=== PATIENT | female | born 1950 | race Caucasian/White ===

== ENCOUNTER → 2017-02-06 | Outpatient (CLI) | payer MEDICARE ==
[~2017-02-06] MED LIST: ACETAMINOPHEN &1 TA1 PO; ALBUTEROL2 PUFFS/17 IN; AMOXIL500 MG PO; AZITHROMYCIN250 MG PO; BACTRIM DS 8001 TA1 PO; BENZONATATE100 M1 PO; CHEWABLE ASPIRI81 MG PO; FAMOTIDINE 20MG20 MG PO; FLEXERIL10 MG PO; FUROSEMIDE 20MG20 MG PO; HYDROCODONE/ACE1 TA5 PO; INDOCIN25 MG PO; KEFLEX 500MG.500 MG PO; LEVAQUIN500 MG PO; LISINOPRIL 5MG T5 MG PO; LORTAB 5/500 501 TAB PO; LOVASTATIN20 MG PO; MEDROL 4MG. DOSE4 MG PO; MOTRIN600 MG PO; NAPROXEN SODIU500 MG PO; PEPCID 20MG TAB20 MG PO; PRAVACHOL 20MG.20 MG PO; PREDNISONE 20MG20 MG PO; SEPTRA DS 800 M1 TAB PO; SULFAMETHOXAZOL1 TA6 PO; TESSALON PERLE100 MG PO; TRAMADOL 512 EACH/PA PO; TRIAMCINOL80 GM/TUBE TP; ULTRAM 50 MG TA50 MG PO; VICODIN 7.5/501 EACH PO; VISTARIL25 M1 PO; ZITHROMAX TRI-500 MG PO
--- NOTE | 2017-02-06 15:15 | RADIOLOGY REPORT PS360 ---
US THYROID HISTORY: THYROID NODULE , follow-up thyroid nodule seen on a screening exam ORDERING PHYSICIAN: Luke Benitez MD PATIENT AGE: 66 years COMPARISON: None FINDINGS: Right lobe: 3.8 x 1.8 x 1.7 cm. There is heterogeneous echogenicity. A discrete nodule is not demonstrated on the right. The thyroid gland itself has a nodular contour Left lobe: 4.7 x 2.1 x 1.9 cm. There is a nodular configuration of the left lobe. A 6 x 3 mm somewhat hypoechoic nodules present in the mid aspect of the left lobe. A small area of heterogeneous echogenicity measuring 7 mm is present in the lower pole on the left slightly hyperechoic. Isthmus: The isthmus is thickened and contains an 8 mm nodule which is isoechoic IMPRESSION: The thyroid gland has a multinodular configuration. The left lobe is slightly prominent. There is a 6 mm hypoechoic nodule in the mid aspect of the left lobe. A 7 mm hyperechoic nodular area is present in the lower pole on the left. An 8 mm isoechoic nodule involves the isthmus.
== END ==
LOC: RAD 12:59
DX: E04.1 Nontoxic single thyroid nodule (principal)

== ENCOUNTER 2017-09-10 17:35 | Emergency (ER) | payer MEDICARE ==
[~2017-09-10] VITALS: Ht 175.3 cm; Wt 70.8 kg
--- OUTSIDE RECORDS SUMMARY | 2017-09-10 17:44 | External Medical Summary Rpt | CCD ---
Author Author , CIRILO Organization [facility]IL[facility] Address Unknown Phone Care Team Providers Care Learning Disabled Teacher Name Role Phone Hardy Tom MD, Unavailable Unavailable Hardy Tom MD [facility] Unavailable Unavailable CARDIOLOGY, [facility]ARDIOLOGY PARLIN MAURILIO, Unavailable Unavailable [facility], Unavailable Unavailable [facility] MARY KATE IGNACIA, Unavailable Unavailable MARY KATE IGNACIA CHAN TAM, CHAN Unavailable Unavailable TAM [facility] Unavailable Unavailable INC, [facility] Unavailable Unavailable HOSPITAL, [facility] FREDO, KENILWORTH FREDO Unavailable Unavailable [facility], Unavailable Unavailable [facility] Un[facility] Un[facility], [facility] Unavailable Unavailable AT [facility], [facility] Unavailable Un[facility], Unavailable Unavailable [facility], [facility] JUANITA AMBIKA, JUANITA AMBIKA Unavailable Unavailable [facility] Unavailable Unavailable EMERGENCY PH[facility], [facility] Purpose Continuity of Care Document - 09-22-2013 through 2016 Problems Code Diagnosis DOS Provider Status E8770 FLUID 09-12-2015 [facility] UNSPECIFIED INC [id number] UNSPECIFIED 09-12-2015 [facility] ASTHMA [facility] UNCOMPLICAT INC ED R0602 SHORTNESS 09-12-2015 [facility] R5383 OTHER 09-12-2015 [facility] J209 ACUTE 08-29-2015 [facility] R05 COUGH 08-17-2015 [facility] R0989 OTH SPEC SX 08-17-2015 [place] [facility] INVLV [facility] CIRC & RESP SYS 490 BRONCHITIS 06-26-2015 [facility] NOT PHYSICIANS SPECIFIED GROUP ACUTE OR CHRONIC 91272 ASTHMA, 06-26-2015 [facility] UNSPECIFIED PHYSICIANS , GROUP UNSPECIFIED STATUS 4019 UNSPECIFIED 06-11-2015 [facility] HYPERTENSIO INC N 4660 ACUTE 06-11-2015 [facility] BRONCHITIS PHYSICIANS, [facility] 75988 OTHER 03-17-2015 [facility] CHRONIC [facility] PAIN INC 7242 LUMBAGO 03-17-2015 [facility], [facility] 8472 LUMBAR 03-17-2015 [facility] SPR[facility] AND [facility] STRAIN INC 8488 OTHER 03-17-2015 [facility] SPECIFIED PHYSICIANS, SITES OF [facility] SPRAINS AND STRAINS 6259 UNSPEC 03-07-2015 [facility] SYMPTOM PHYSICIANS ASSOC GROUP W/FEMALE GENITAL ORGANS 62493 ABDOMINAL 03-07-2015 [facility] PAIN RIGHT PHYSICIANS LOWER GROUP QUADRANT V7231 ROUTINE 01-17-2015 [facility] AL EXAMINATION 37343 OSTEOARTHRO 01-11-2015 [facility] S UNSPEC PHYSICIANS GEN/LOC GROUP PELV REGION&THIG H 28528 OSTEOARTHRO 01-11-2015 [facility] SIS UNSPEC PHYSICIANS WHETHER GROUP GEN/LOC LOWER LEG 16387 OTHER 01-11-2015 [facility] SYNOVITIS [place]YSIC[place] [address] PLICA 01-11-2015 [facility] SYNDROME PHYSICIANS GROUP 64809 PAIN IN 12-28-2014 [place] [facility] [facility] REGION AND THIGH 62317 PAIN IN 12-28-2014 [place] [facility], MEDICAL LOWER LEG IM[facility]ING [facility] 40235 OSTEOARTHRO 12-16-2014 [facility] S UNSPEC PHYSICIANS WHETHER GROUP GEN/LOC UNSPEC SITE 66654 NUCLEAR 10-25-2014 [facility] FREDO SCLEROSIS 3669 UNSPECIFIED 10-18-2014 [facility] INC V5869 LONG-TERM 10-18-2014 [facility] (CURRENT) [facility] USE OF INC OTHER MEDICATIONS 3688 OTHER 09-13-2014 [facility] SPECIFIED MAURILIO VISUAL DISTURBANCE S 2720 PURE 08-31-2014 [facility] HYPERCHOLES CARDIOLOGY TEROLEMIA AT CENT 4011 ESSENTIAL 08-31-2014 [facility] HYPERTENSIO CARDIOLOGY N, BENIGN AT CENT 7851 PALPITATION 08-31-2014 [facility] CARDIOLOGY 45831 OTHER 08-31-2014 [facility] DYSPNEA AND CARDIOLOGY [place] [address] DERMATOCHAL 08-16-2014 [facility] ASIS MAURILIO 2724 OTHER AND 08-12-2014 [facility] UNSPECIFIED PHYSICIANS GROUP HYPERLIPIDE [place]ADISON 58151 OTHER&UNSPE 08-12-2014 [facility] CIFIED DISC PHYSICIANS DISORDER GROUP CERVICAL REGION 89908 ACUTE 08-10-2014 [facility] LARYNGITIS, N EMERGENCY WITHOUT PHYS MENTION OF OBSTRUCTIO 7231 CERVICALGIA 07-12-2014 [facility] INC 7243 SCIATICA 07-12-2014 [facility] INC 7245 UNSPECIFIED 07-12-2014 [facility]HE [facility] INC V571 OTHER 07-12-2014 [facility] PHYSICAL [facility] THERAPY INC V7612 OTHER 07-07-2014 [place] SCREENING MEDICAL MAMMOGRAM IMAGING ASS 2449 UNSPECIFIED 06-25-2014 [facility] HYPOTHYROID INC ISM 7210 CERVICAL 06-25-2014 [place] SPONDYLOSIS MEDICAL WITHOUT IMAGING ASS MYELOPATHY 7224 DEGENERATIO 06-25-2014 [place] N OF MEDICAL CERVICAL IMAGING ASS INTERVERTEB RAL DISC 7234 BRACHIAL 06-25-2014 [facility] NEURITIS OR N EMERGENCY PHYS RADICULITIS NOS V1582 PERS HX 06-25-2014 [facility] TOBACCO USE [facility] PRESENTING INC HAZARDS HEALTH 4510 PHLEBITIS&T 05-20-2014 [facility] HROMBOPHLEB [facility] SUP INC VESSELS LOWER EXTREM 4519 PHLEBITIS&T 05-20-2014 [facility] HROMBOPHLEB ITIS OF UNSPECIFIED SITE 7295 PAIN IN 05-20-2014 CHAN MIC SOFT TISSUES OF LIMB 7823 EDEMA 05-13-2014 [facility] INC 72342 OTHER 05-11-2014 [facility] MALAISE AND PHYSICIANS FATIGUE GROUP 4549 ASYMPTOMATI 02-10-2014 CH[facility] MIC C VARICOSE VEINS 6929 CONTACT 02-10-2014 [facility] DERMATITIS& OTHER ECZEMA DUE UNSPEC CAUSE 2722 MIXED 01-21-2014 [facility] HYPERLIPIDE [facility] 4659 ACUTE URIS 12-24-2013 JUANITA AMBIKA OF UNSPECIFIED SITE 27147 SHORTNESS 12-24-2013 MARY KATE OF BREATH IGNACIA 915.6 915.6 09-22-2013 [facility] E04.1 NONTOXIC SINGLE THYROID NODULE J06.9 ACUTE UPPER RESPIRATORY INFECTION, UNSPECIFIED M54.12 RADICULOPAT HY, CERVICAL REGION M54.5 LOW BACK PAIN M62.830 MUSCLE SPASM OF BACK M62.838 OTHER MUSCLE SPASM 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) USE OF OPIATE ANALGESIC Allergies, Adverse Reactions, Alerts Type Allergy to substance Drug Allergy Adverse Reaction to Substance Substance Reaction Severity INGREDIENT: NO KNOWN Unknown Unknown - NO KNOWN DRUG ALLERGY No Known Allergies - Unknown Mild Nka Medications Na ND Rx Da Fi Fi Am Da Di Ph RX Ph St me C No te ll ll ou ys ag ar # ys at rm s nt no ma ic us Or Da si cy ia de te s n re d LI 63 12 0 No DO 32 -1 CA 30 8- Lo IN 20 20 ng E 11 13 er HC 0 L Ac 1% ti ve AL TR 00 12 0 No IP 16 -1 LE 80 8- Lo 01 20 ng AN 20 13 er TI 9 BI Ac OT ti IC ve OI NT ME NT Vital Signs 09-22-2013 12:50 Name Value Interpretat Reference Comment ion Range Body 97.7 [degF] Temperature BP 79 mm[Hg] Diastolic BP Systolic 152 mm[Hg] Heart 75 /min Rate/Pulse O2% 95 % Respiratory 20 /min Rate 09-22-2013 10:56 Name Value Interpretat Reference Comment ion Range BP 86 mm[Hg] Diastolic BP Systolic 130 mm[Hg] Heart 82 /min Rate/Pulse O2% 95 % Respiratory 20 /min Rate Encounters Encounter Start End Date Code Location Performer Type Date [facility] JOHNNIE - 5 5 [facility] JOHNNIE - 5 5 [facility] JOHNNIE - 5 5 [facility] J[facility] - 5 5 [facility] J[facility] - 5 5 [facility] J[facility] - 5 5 [facility] J[facility]IE - 4 4 [facility] J[facility]NNIE - 4 4 [facility] J[facility]NNIE - 4 4 [facility] J[facility] - 4 4 [facility] J[facility] - 4 4 [facility] - 4 4 [facility] J[facility]NNIE - 4 4 [facility] - 4 4 [facility] JOHNNIE - 4 4 [facility] Emergency ROBERTO Tom MD (ER) 3 10:47 3 12:51 [facility]
--- OUTSIDE RECORDS SUMMARY | 2017-09-10 17:44 | External Medical Summary Rpt | CCD ---
Author Author , CIRILO Organization [facility]IL[facility] Address Unknown Phone Care Team Providers Care Lead Injection Mold Technician Name Role Phone Hardy Tom MD, Unavailable Unavailable Hardy Tom MD [facility] Unavailable Unavailable CARDIOLOGY, [facility] [place] MAURILIO, Unavailable Unavailable [facility], Unavailable Unavailable [facility] MARY KATE IGNACIA, Unavailable Unavailable MARY KATE IGNACIA CHAN TAM, CHAN Unavailable Unavailable TAM [facility] Unavailable Unavailable INC, [facility] Unavailable Unavailable HOSPITAL, [facility] FREDO, EDINA FREDO Unavailable Unavailable [facility], Unavailable Unavailable [facility] Unavailable Unavailable [facility], [facility] Un[facility], [facility]available Unavailable AT [facility], [facility] Unavailable Unavailable [facility], Unavailable Unavailable PLLC, [facility] JUANITA AMBIKA, JUANITA AMBIKA Unavailable Unavailable [facility] Unavailable Unavailable EMERGENCY PHYS, [facility] Purpose Continuity of Care Document - 09-22-2013 through 2016 Problems Code Diagnosis DOS Provider Status E8770 FLUID 09-12-2015 [facility] UNSPECIFIED INC [id number] UNSPECIFIED 09-12-2015 [facility]MA [facility] UNCOMPLICAT INC ED R0602 SHORTNESS 09-12-2015 [facility] R5383 OTHER 09-12-2015 [facility] J209 ACUTE 08-29-2015 [facility] R05 COUGH 08-17-2015 [facility] R0989 OTH SPEC SX 08-17-2015 [facility] & SIGNS MEDICAL INVLV THE IMAGING ASS CIRC & RESP SYS 490 BRONCHITIS 06-26-2015 [facility] NOT PHYSICIANS SPECIFIED GROUP ACUTE OR CHRONIC 89439 ASTHMA, 06-26-2015 [facility] UNSPECIFIED PHYSICIANS , GROUP UNSPECIFIED STATUS 4019 UNSPECIFIED 06-11-2015 [facility] HYPERTENSIO INC N 4660 ACUTE 06-11-2015 [facility] BRONCHITIS PHYSICIANS, [facility] 76247 OTHER 03-17-2015 [facility] PAIN INC 7242 LUMBAGO 03-17-2015 [facility], [facility] 8472 LUMBAR 03-17-2015 [facility] SPR[facility] STRAIN INC 8488 OTHER 03-17-2015 [facility] SPECIFIED PHYSICIANS, SITES OF [facility] SPRAINS AND STRAINS 6259 UNSPEC 03-07-2015 [facility] SYMPTOM PHYSICIANS ASSOC GROUP W/FEMALE GENITAL ORGANS 00585 ABDOMINAL 03-07-2015 [facility] PAIN RIGHT PHYSICIANS LOWER GROUP QUADRANT V7231 ROUTINE 01-17-2015 [facility] AL EXAMINATION 35055 OSTEOARTHRO 01-11-2015 [facility] S UNSPEC PHYSICIANS GEN/LOC GROUP PELV REGION&THIG H 47638 OSTEOARTHRO 01-11-2015 [facility] SIS UNSPEC PHYSICIANS WHETHER GROUP GEN/LOC LOWER LEG 07874 OTHER 01-11-2015 [facility] SYNOVITIS [place]YSIC[place] [address] PLICA 01-11-2015 [facility] SYNDROME PHYSICIANS GROUP 30295 PAIN IN 12-28-2014 [facility] REGION AND THIGH 47857 PAIN IN 12-28-2014 [facility], MEDICAL LOWER LEG IMAGING ASS 19467 OSTEOARTHRO 12-16-2014 [facility] S UNSPEC PHYSICIANS WHETHER GROUP GEN/LOC UNSPEC SITE 78157 NUCLEAR 10-25-2014 [facility] FR[facility] SCLEROSIS 3669 UNSPECIFIED 10-18-2014 [facility] INC V5869 LONG-TERM 10-18-2014 [facility] (CURRENT) [facility] USE OF INC OTHER MEDICATIONS 3688 OTHER 09-13-2014 [facility] SPECIFIED MAURILIO VISUAL DISTURBANCE S 2720 PURE 08-31-2014 [facility] HYPERCHOLES CARDIOLOGY TEROLEMIA AT CENT 4011 ESSENTIAL 08-31-2014 [facility] HYPERTENSIO CARDIOLOGY N, BENIGN AT CENT 7851 PALPITATION 08-31-2014 [facility] CARDIOLOGY 73382 OTHER 08-31-2014 [facility] DYSPNEA AND CARDIOLOGY [place] [address] DERMATOCHAL 08-16-2014 [facility] ASIS MAURILIO 2724 OTHER AND 08-12-2014 [facility] UNSPECIFIED PHYSICIANS GROUP HYPERLIPIDE MADISON 52548 OTHER&UNSPE 08-12-2014 [facility] CIFIED DISC PHYSICIANS DISORDER GROUP CERVICAL REGION 27772 ACUTE 08-10-2014 [facility] LARYNGITIS, N EMERGENCY WITHOUT PHYS MENTION OF OBSTRUCTIO 7231 CERVICALGIA 07-12-2014 [facility] INC 7243 SCIATICA 07-12-2014 [facility] INC 7245 UNSPECIFIED 07-12-2014 [facility]HE [facility] INC V571 OTHER 07-12-2014 [facility] PHYSICAL [facility] THERAPY INC V7612 OTHER 07-07-2014 [facility] SCREENING MEDICAL MAMMOGRAM IMAGING ASS 2449 UNSPECIFIED 06-25-2014 [facility] HYPOTHYROID INC ISM 7210 CERVICAL 06-25-2014 [facility] SPONDYLOSIS MEDICAL WITHOUT IMAGING ASS MYELOPATHY 7224 DEGENERATIO 06-25-2014 [facility] N OF MEDICAL CERVICAL IMAGING ASS INTERVERTEB RAL DISC 7234 BRACHIAL 06-25-2014 [facility] NEURITIS OR N EMERGENCY PHYS RADICULITIS NOS V1582 PERS HX 06-25-2014 [facility] TOBACCO USE [facility] PRESENTING INC HAZARDS HEALTH 4510 PHLEBITIS&T 05-20-2014 [facility] HROMBOPHLEB [facility] SUP INC VESSELS LOWER EXTREM 4519 PHLEBITIS&T 05-20-2014 [facility] HROMBOPHLEB ITIS OF UNSPECIFIED SITE 7295 PAIN IN 05-20-2014 [facility] MIC SOFT TISSUES OF LIMB 7823 EDEMA 05-13-2014 [facility] INC 71778 OTHER 05-11-2014 [facility] MALAISE AND PHYSICIANS FATIGUE GROUP 4549 ASYMPTOMATI 02-10-2014 [facility] MIC C VARICOSE VEINS 6929 CONTACT 02-10-2014 [facility] DERMATITIS& OTHER ECZEMA DUE UNSPEC CAUSE 2722 MIXED 01-21-2014 [facility] HYPERLIPIDE [facility] 4659 ACUTE URIS 12-24-2013 JUANITA AMBIKA OF UNSPECIFIED SITE 51587 SHORTNESS 12-24-2013 MARY KATE OF BREATH IGNACIA 915.6 915.6 09-22-2013 [facility] E04.1 NONTOXIC SINGLE THYROID NODULE J06.9 ACUTE UPPER RESPIRATORY INFECTION, UNSPECIFIED M54.12 RADICULOPAT HY, CERVICAL REGION M54.5 LOW BACK PAIN M62.830 MUSCLE SPASM OF BACK M62.838 OTHER MUSCLE SPASM 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.891 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 Allergies, Adverse [...] End Date Code Location Performer Type Date [facility] JOHNNIE - 5 5 [facility] JOHNNIE - 5 5 [facility] JOHNNIE [facility] 5 5 [facility] JOHNNIE - 5 5 [facility] JOHNNIE - 5 5 [facility] J[facility] - 5 5 [facility] J[facility]IE - 4 4 [facility] J[facility]IE - 4 4 [facility] JOH[facility]IE - 4 4 [facility] JOHNNIE - 4 4 [facility] JOHNNIE - 4 4 [facility] - 4 4 [facility] JOHNNIE - 4 4 [facility] - 4 4 [facility] JOHNNIE - 4 4 [facility] Emergency ROBERTO Tom MD (ER) 3 10:47 3 12:51 [facility]
--- OUTSIDE RECORDS SUMMARY | 2017-09-10 17:45 | External Medical Summary Rpt ---
Author Author CIRILO Daniel, PIERREARNAUD [employer] Organization [employer] Address Unknown Phone Unavailable Results Thyroxine (T4) free [Mass/volume] in Serum or Plasma Observa Value Referen Units Interpr Notes Date ti ce etation Range Thyroxine 0.76 - ng/dL Normal No Mar 31 (T4) 1.46 informati 2017 free on in 11:48 AM [Mass/vol source ume] in data Serum or Plasma Thyrotropin [Units/volume] in Serum or Plasma Observa Value Referen Units Interpr Notes Date ti ce etation Range Thyrotrop 0.358 - uIU/ml No No Mar 31 in 3.740 informati informati 2016 [Units/vo on in on in 11:48 AM lume] in source source Serum or data data Plasma
--- OUTSIDE RECORDS SUMMARY | 2017-09-10 17:45 | External Medical Summary Rpt | CCD ---
Author Author , CIRILO Organization CIRILO Address Unknown Phone [email or web address] Care Team Providers Care Intern Architect Name Role Phone [facility] Unavailable Unavailable CARDIOLOGY, [facility] CHRISTIANO MAURILIO, Unavailable Unavailable CHRISTIANO MAURILIO [facility], Unavailable Unavailable [facility] MARY KATE IGNACIA, Unavailable Unavailable MARY KATE IGNACIA CHAN TAM, CHAN Unavailable Unavailable [facility] Unavailable Unavailable INC, [facility] Unavailable [facility], [facility], [facility] Unavailable Unavailable [facility], Unavailable Unavailable [facility] Un[facility] Unavailable [facility], [facility], [facility]available AT [facility], [facility], [employer], [facility] Unavailable [facility]available [facility], Unavailable Unavailable PLL[facility], [facility] JUANITA AMBIKA, JUANITA AMIBKA Unavailable Un[facility] Un[facility], [facility] Purpose Continuity of Care Document - 12-24-2013 through 2016 Problems Code Diagnosis DOS Provider Status E8770 FLUID 09-12-2015 [facility] UNSPECIFIED INC [id number] UNSPECIFIED 09-12-2015 [facility] UNCOMPLICAT INC ED R0602 SHORTNESS 09-12-2015 [facility] R5383 OTHER 09-12-2015 [facility] J209 ACUTE 08-29-2015 [facility] UNSPECIFIED HOSPITAL R05 COUGH 08-17-2015 [facility] R0989 OTH SPEC SX 08-17-2015 [facility] CIRC & RESP SYS 490 BRONCHITIS 06-26-2015 [facility] NOT PHYSICIANS SPECIFIED GROUP ACUTE OR CHRONIC 49262 ASTHMA, 06-26-2015 [facility] UNSPECIFIED PHYSICIANS , GROUP UNSPECIFIED STATUS 4019 UNSPECIFIED 06-11-2015 [facility] HYPERTENSIO INC N 4660 ACUTE 06-11-2015 [facility] BRONCHITIS [facility] PLL[facility] 93701 OTHER 03-17-2015 [facility] PAIN INC 7242 LUMBAGO 03-17-2015 [facility], [facility] 8472 LUMBAR 03-17-2015 [facility] STRAIN INC 8488 OTHER 03-17-2015 [facility] SPECIFIED PHYSICIANS, [facility] SPRAINS AND STRAINS 6259 UNSPEC 03-07-2015 [facility] SYMPTOM PHYSICIANS ASSOC GROUP W/FEMALE GENITAL ORGANS 71407 ABDOMINAL 03-07-2015 [facility] PAIN RIGHT PHYSICIANS LOWER GROUP QUADRANT V7231 ROUTINE 01-17-2015 [facility] AL EXAMINATION 87867 OSTEOARTHRO 01-11-2015 [facility] S UNSPEC PHYSICIANS GEN/LOC GROUP PELV REGION&THIG H 33410 OSTEOARTHRO 01-11-2015 [facility] SIS UNSPEC PHYSICIANS WHETHER GROUP GEN/LOC LOWER LEG 75662 OTHER 01-11-2015 [facility] SYNOVITIS [place]YSIC[place] [address] PLICA 01-11-2015 [facility] SYNDROME PHYSICIANS GROUP 79273 PAIN IN 12-28-2014 [facility] REGION AND THIGH 53504 PAIN IN 12-28-2014 [facility], MEDICAL LOWER LEG IMAGING ASS 63284 OSTEOARTHRO 12-16-2014 [facility] S UNSPEC PHYSICIANS WHETHER GROUP GEN/LOC UNSPEC SITE 66434 NUCLEAR 10-25-2014 [facility] SCLEROSIS 3669 UNSPECIFIED 10-18-2014 [facility] INC V5869 LONG-TERM 10-18-2014 [facility] (CURRENT[facility] USE OF INC OTHER MEDICATIONS 3688 OTHER 09-13-2014 [facility] SPECIFIED MAURILIO VISUAL DISTURBANCE S 2720 PURE 08-31-2014 [place] [facility]PER[facility] TEROLEMIA AT CENT 4011 ESSENTIAL 08-31-2014 [place] HYPERTENSIO CARDIOLOGY N, BENIGN AT CENT 7851 PALPITATION 08-31-2014 [facility] 50581 OTHER 08-31-2014 [facility] DY[facility]NE[facility]ARDIOLOG[place] [address] DERMATOCHAL 08-16-2014 [facility] ASIS MAURILIO 2724 OTHER AND 08-12-2014 [facility] UNSPECIFIED PHYSICIANS GROUP HYPERLIPIDE [place] 39995 OTHER&UNSPE 08-12-2014 [facility] CIFIED DISC PHYSICIANS DISORDER GROUP CERVICAL REGION 54964 ACUTE 08-10-2014 [facility], N EMERGENCY WITHOUT PHYS MENTION OF OBSTRUCTIO 7231 CERVICALGIA 07-12-2014 [facility] 7243 SCIATICA 07-12-2014 [facility] 7245 UNSPECIFIED 07-12-2014 [facility] INC V571 OTHER 07-12-2014 [facility] PHYSICAL [facility] THERAPY INC V7612 OTHER 07-07-2014 [place] SCREENING MEDICAL MAMMOGRAM [facility] 2449 UNSPECIFIED 06-25-2014 [facility] HYPOTHYROID INC ISM 7210 CERVICAL 06-25-2014 [place] SPONDYLOSIS MEDICAL WITHOUT IMAGING ASS MYELOPATHY 7224 DEGENERATIO 06-25-2014 [place] N OF MEDICAL CERVICAL IMAGING ASS INTERVERTEB RAL DISC 7234 BRACHIAL 06-25-2014 [facility] NEURITIS OR N EMERGENCY PHYS RADICULITIS NOS V1582 PERS HX 06-25-2014 [facility] TOBACCO USE [facility] PRESENTING INC HAZARDS HEALTH 4510 PHLEBITIS&T 05-20-2014 [facility] HROMBOPHLEB [facility] SUP INC VESSELS LOWER EXTREM 4519 PHLEBITIS&T 05-20-2014 [facility] HROMBOPHLEB ITIS OF UNSPECIFIED SITE 7295 PAIN IN 05-20-2014 [facility] SOFT TISSUES OF LIMB 7823 EDEMA 05-13-2014 [facility] 91134 OTHER 05-11-2014 [facility] MALAISE AND PHYSICIANS FATIGUE GROUP 4549 ASYMPTOMATI 02-10-2014 [facility] C VARICOSE VEINS 6929 CONTACT 02-10-2014 CH[facility] MIC DERMATITIS& OTHER ECZEMA DUE UNSPEC CAUSE 2722 MIXED 01-21-2014 [facility] HYPERLIPIDE [facility] 4659 ACUTE URIS 12-24-2013 JUANITA AMBIKA OF UNSPECIFIED SITE 12984 SHORTNESS 12-24-2013 MARY KATE OF BREATH IGNACIA Encounters Encounter Start End Date Code Location Performer Type Date [facility] - 5 5 [facility] 5 [facility] - 5 5 [facility] - 5 5 [facility] - 5 5 [facility] - 5 5 [facility] - 4 4 [facility] - 4 4 [facility] - 4 4 [facility] - 4 4 [facility] - 4 4 [facility] - 4 4 [facility] - 4 4 [facility] C[facility]AL - 4 4 [facility] J[facility]NNIE - 4 4 [facility]
--- OUTSIDE RECORDS SUMMARY | 2017-09-10 17:45 | External Medical Summary Rpt | CCD ---
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 Name Role Phone [facility] Unavailable Unavailable CARDIOLOGY, [facility] CHRISTIANO MAURILIO, Unavailable Unavailable CHRISTIANO MAURILIO [facility], Unavailable Unavailable [facility] MARY KATE IGNACIA, Unavailable Unavailable MARY KATE IGNACIA CHAN TAM, CHAN Unavailable Unavailable [facility] Unavailable Unavailable INC, [facility] Unavailable [facility], [facility], [facility] Unavailable [facility]available [facility], Unavailable Unavailable [facility] Unavailable [facility]available [facility], [facility], [facility]available AT [facility], [facility], [email or web address], [facility] Unavailable Unavailable [facility], Unavailable Unavailable PLLC, [facility] JUANITA AMBIKA, JUANITA AMBIKA Unavailable Unavailable [facility] Unavailable Unavailable EMERGENCY PHYS, [facility] Purpose Continuity of Care Document - 12-24-2013 through 2016 Problems Code Diagnosis DOS Provider Status E8770 FLUID 09-12-2015 [facility] UNSPECIFIED INC [id number] UNSPECIFIED 09-12-2015 [facility] UNCOMPLICAT INC ED R0602 SHORTNESS 09-12-2015 [facility] R5383 OTHER 09-12-2015 [facility] J209 ACUTE 08-29-2015 [facility] UNSPECIFIED HOSPITAL R05 COUGH 08-17-2015 [facility] R0989 OTH SPEC SX 08-17-2015 [place] [facility] INVLV THE IM[facility]ING ASS CIRC & RESP SYS 490 BRONCHITIS 06-26-2015 [facility] NOT PHYSICIANS SPECIFIED GROUP ACUTE OR CHRONIC 24901 ASTHMA, 06-26-2015 [facility] UNSPECIFIED PHYSICIANS , GROUP UNSPECIFIED STATUS 4019 UNSPECIFIED 06-11-2015 [facility] HYPERTENSIO INC N 4660 ACUTE 06-11-2015 [facility] BRONCHITIS [facility] 75953 OTHER 03-17-2015 [facility] PAIN INC 7242 LUMBAGO 03-17-2015 [facility], [facility] 8472 LUMBAR 03-17-2015 [facility] STRAIN INC 8488 OTHER 03-17-2015 [facility] SPECIFIED PHYSICIANS, [facility] SPRAINS AND STRAINS 6259 UNSPEC 03-07-2015 [facility] SYMPTOM PHYSICIANS ASSOC GROUP W/FEMALE GENITAL ORGANS 24493 ABDOMINAL 03-07-2015 [facility] PAIN RIGHT PHYSICIANS LOWER GROUP QUADRANT V7231 ROUTINE 01-17-2015 [facility] AL EXAMINATION 33005 OSTEOARTHRO 01-11-2015 [facility] S UNSPEC PHYSICIANS GEN/LOC GROUP PELV REGION&THIG H 10021 OSTEOARTHRO 01-11-2015 [facility] SIS UNSPEC PHYSICIANS WHETHER GROUP GEN/LOC LOWER LEG 59190 OTHER 01-11-2015 [facility] SYNOVITIS PHYSICI[place] [address] PLICA 01-11-2015 [facility] SYNDROME PHYSICIANS GROUP 89007 PAIN IN 12-28-2014 [facility] REGION AND THIGH 88205 PAIN IN 12-28-2014 [place] [facility] MEDICAL LOWER LEG IMAGING ASS 83577 OSTEOARTHRO 12-16-2014 [facility] S UNSPEC PHYSICIANS WHETHER GROUP GEN/LOC UNSPEC SITE 79886 NUCLEAR 10-25-2014 [facility] SCLEROSIS 3669 UNSPECIFIED 10-18-2014 [facility] INC V5869 LONG-TERM 10-18-2014 [facility] (CURRENT[facility] USE OF INC OTHER MEDICATIONS 3688 OTHER 09-13-2014 CH[facility]O SPECIFIED MAURILIO VISUAL DISTURBANCE S 2720 PURE 08-31-2014 [place] HYPER[facility]IOLOG[facility] TEROLEMIA AT CENT 4011 ESSENTIAL 08-31-2014 [place] HYPERTENSIO CARDIOLOGY N, BENIGN AT CENT 7851 PALPITATION 08-31-2014 [facility] 83551 OTHER 08-31-[address] [facility] DYSPNEA AND CARDIOLOGY [place] [address] DERMATOCHAL 08-16-2014 [facility] ASIS MAURILIO 2724 OTHER AND 08-12-2014 [facility] UNSPECIFIED PHYSICIANS GROUP HYPERLIPIDE [place] 72119 OTHER&UNSPE 08-12-2014 [facility] CIFIED DISC PHYSICIANS DISORDER GROUP CERVICAL REGION 40303 ACUTE 08-10-2014 [facility] LARYNGITIS, N EMERGENCY WITHOUT PHYS MENTION OF OBSTRUCTIO 7231 CERVICALGIA 07-12-2014 [facility] INC 7243 SCIATICA 07-12-2014 [facility] INC 7245 UNSPECIFIED 07-12-2014 [facility] BACKACHE [facility] HOS[facility] INC V571 OTHER 07-12-2014 [facility] PHYSICAL [facility] THERAPY INC V7612 OTHER 07-07-2014 [place] SCREEN[facility]ICAL MAMMOGRAM IMAGING ASS 2449 UNSPECIFIED 06-25-2014 [facility] HYPOTHYROID INC ISM 7210 CERVICAL 06-25-2014 [place] SPONDYLOSIS MEDICAL WITHOUT IMAGING ASS MYELOPATHY 7224 DEGENERATIO 06-25-2014 [place] N OF MEDICAL CERVICAL IMAGING ASS INTERVERTEB RAL DISC 7234 BRACHIAL 06-25-2014 [facility] NEURITIS OR N EMERGENCY PHYS RADICULITIS NOS V1582 PERS HX 06-25-2014 [facility] TOBACCO USE [facility] PRESENTING INC HAZARDS HEALTH 4510 PHLEBITIS&T 05-20-2014 [facility] HROMBOPHLEB [facility] SUP INC VESSELS LOWER EXTREM 4519 PHLEBITIS&T 05-20-2014 [facility] HROMBOPHLEB ITIS OF UNSPECIFIED SITE 7295 PAIN IN 05-20-2014 [facility] SOFT TISSUES OF LIMB 7823 EDEMA 05-13-2014 [facility] HOS[facility] INC 75780 OTHER 05-11-2014 [facility] MALAISE AND PHYSICIANS FATIGUE GROUP 4549 ASYMPTOMATI 02-10-2014 [facility] C VARICOSE VEINS 6929 CONTACT 02-10-2014 [facility] MIC DERMATITIS& OTHER ECZEMA DUE UNSPEC CAUSE 2722 MIXED 01-21-2014 [facility] HYPERLIPIDE [facility]P 4659 ACUTE URIS 12-24-2013 JUANITA AMBIKA OF UNSPECIFIED SITE 81124 SHORTNESS 12-24-2013 MARY KATE OF BREATH IGNACIA Encounters Encounter Start End Date Code Location Performer Type Date [facility] - 5 5 [facility] 5 [facility] - 5 5 [facility] - 5 5 [facility] - 5 5 [facility] - 5 5 [facility] - 4 [facility] - 4 4 [facility] - 4 4 [facility] - 4 4 [facility] - 4 4 [facility] - 4 4 [facility] - 4 4 [facility] - 4 4 [facility] JOHNNIE - 4 4 [facility]
--- OUTSIDE RECORDS SUMMARY | 2017-09-10 17:45 | External Medical Summary Rpt | CCD ---
Author Author , CIRILO KERR Address Unknown Phone [email or web address] Immunization Name Date Rout CVX Reac Dose Comm Prov Is Faci e tion ent ider Refu lity Give sed n Infl 09-1 999 Hist GSHA No GSHA uenz 4-20 oric NE NE a 17 al Quad Info rmat W/Pr ion es - Sour ce Unsp ecif ied
--- OUTSIDE RECORDS SUMMARY | 2017-09-10 17:45 | External Medical Summary Rpt | CCD ---
Author Author , CIRILO KERR Address Unknown Phone [email or web address] Immunization Name Date Rout CVX Reac Dose Comm Prov Is Faci e tion ent ider Refu lity Give sed n Infl 09-1 999 Hist GSHA No GSHA uenz 4-20 oric NE NE a 17 al Quad Info rmat W/Pr ion es - Sour ce Unsp ecif ied
--- NOTE | 2017-09-10 18:19 | Urgent Treatment Center Report ---
History of Present Issue Date/Time Seen by Provider 09/10/17 1803 Visit Reason Pt arrived:Walked Presenting Problem:PT STATES WHEN SHE WOKE UP THIS AM AND STEPPED DOWN HER LEFT FOOT HAD PAIN FROM THE ARCH TO THE HEEL AREA. DENIES INJURY Location if Accident: Onset of symptoms date/time:/ or onset unknown for:MEDICAL HX UNKNOWN Have you (or family members/close friends) recently traveled outside the [place]? N If Yes, where/when: Have you had exposure to infectious disease within the past month? TB? Other? Specify: c/o left heel pain. First noticed when stepped out of bed today but had errands to run and since being out and about all day, pain has worsened. The most painful when bearing weight. Tylenol this morning at 10am helped. Hasn't taken or tried anything else. Denies any known injury or previous pain. Was referred to Dr. Hernández by PCP for a bunion w/ appt in Oct. Source patient Exam Limitations no limitations ALLERGIES Coded Allergies: No Known Allergies (10/18/16) Home Medications Active Scripts Cyclobenzaprine Hcl (Flexeril) 5 MG PO BID PRN spasm #6 TAB Prov: 12/31/16 Albuterol (Albuterol Inhaler 17GM) 1 PUFF IN Q4 #1 INH Prov: 06/11/15 BENZONATATE (Benzonatate) 100 MG PO Q4HP PRN COUPH #21 CAP Prov: 06/11/15 Reported Medications Aspirin (Aspirin, Chewable) 81 MG PO QHS Famotidine (Pepcid 20MG Tablet) 20 MG PO QHS LISINOPRIL (Lisinopril) 5 MG PO DAILY Furosemide (Furosemide) 20 MG PO QOD #20 Lovastatin 20 MG PO DAILY #30 History Medical History General Angina: No AL: No Hypertension? Yes Hyperlipidemia? Yes CHF? No COPD? No Asthma? No Hernia? Yes Thyroid Problems? No Hypothyroidism? No CVA? No Seizures? No Diabetes? No UTI? Yes Stones? No GB Disease: No Hepatitis? No Cataracts? Yes Glaucoma? No MRSA? No TB? No Cancer? No Immunization HX DT/Tetanus 1-4 YRS Flu Refused Pneumonia Never Had Surgical Hx Previous Surgery?Y PUNEET CATARACTS Tonsils LEFT BREAST BIOPSY HYSTERECTOMY CYST BRAIN SURGERY Hernia Repair Family History Family HX Diabetes No CAD Yes Hypertension Yes Hyperlipidemia Yes Cancer No TB No Social History Smoking Hx Smoker: Never Smoker Tobacco: No Alcohol Alcohol: No Review of Systems All Other Systems Reviewed and Negative (as appropriate for CC) Constitutional denies chills, denies fever, denies malaise Musculoskeletal see HPI, denies joint swelling, denies other (ankle/leg pain) Skin denies change in color, denies lesions, denies lumps Psychiatric/Neurological denies numbness, denies tingling Physical Exam Vital Signs Vital Signs Date Time Temp Pulse Resp B/P Pulse O2 O2 Flow FiO2 Ox Delivery Rate 09/10 1838 98.0 86 20 117/93 98 09/10 174 98.0 86 20 117/93 98 General Appearance mild distress (when weight bearing) Respiratory Status No: respiratory distress. Cardiovascular no peripheral edema Peripheral Pulses Pulses normal Yes (PT/DP) Back gait abnormality (trying to favor left foot) Extremities normal range of motion (left toes, ankle, knee), normal inspection ( left foot and LLE), marked TTP bottom of heel only Strength 5 Lower Ext (L), 5 Lower Ext (R) Neurologic alert, oriented x 3 Skin intact, normal color, warm/dry Medical Decision Making LABS/Meds/Orders Pt receiving controlled substance in ED? No Results/Orders Orders Procedure Date/time Status STABILIZE JOINT 09/10 1834 Active XRAY/CT/US XRAY/CT/US XRAY foot (left) XR interpretation by reviewed by me (w/ PETTY Brasher MD) Xray Results no acute fracture, large heel spur Departure Departure Time of Disposition 1833 Disposition DC Home or Self Care(routine) Clinical Impression Primary Impression: Heel spur Qualifiers: Laterality: left Qualified Code: M77.32 - Calcaneal spur, left foot Condition STABLE Referrals BESSIE HERNÁNDEZ DPM Call her office in the morning. Tell them you have an appt in Oct for a bunioun but now you are having acute heel pain. you were seen in the [facility] tonight. Xray. Put on crutches and told to call in the morning to see if possible to get a sooner appointment for this new onset pain. Additional Instructions A heel spur is an extra growth on the bone of the heel that can build up over a long period. Heel spurs are more common among people who experience heel pain, though the spur doesnt actually cause any pain. A heel spur, also known as a calcaneal spur, may stick out by as much as 1.25cm (half an inch). An X-ray is often needed to confirm a heel spur diagnosis. Heel spurs are sometimes associated with plantar fasciitis, a painful inflammation of the fibrous band of connective tissue (plantar fascia) that runs along the bottom of the foot and connects the heel bone to the ball of the foot. Treatments for heel spurs and associated conditions include exercise, orthotics, anti-inflammatory medications and corticosteroid injections. If more conservative treatments fail, an operation may be necessary. Causes of heel spurs Heel spurs occur when calcium deposits build up on the underside of the heel bone, a process that usually occurs over a period of many months. Heel spurs are often caused by strains on foot muscles and ligaments, stretching of the plantar fascia and repeated tearing of the membrane that covers the heel bone. Heel spurs are especially common among athletes who do a lot of running and jumping. Risk factors for heel spurs include: Walking gait abnormalities, which place excessive stress on the heel bone, ligaments and nerves near the heel Running or jogging, especially on hard surfaces Poorly fitted or badly worn shoes, especially those lacking appropriate arch support Excess weight and obesity Other risk factors associated with plantar fasciitis include: Getting older, which decreases plantar fascia flexibility and thins the heel's protective fat pad Diabetes Spending most of the day on your feet Frequent short bursts of physical activity Having either flat feet or high arches Symptoms of heel spurs Heel spurs often have no symptoms, but they can be associated with intermittent or chronic pain. This can often happen while walking, jogging or running if inflammation develops at the point of the spur formation. In general, the cause of the pain is not the heel spur itself but the soft- tissue injury associated with it. Many people describe the pain of heel spurs and plantar fasciitis as being like a knife or pin sticking into the bottom of their feet when they first stand up in the morning, a pain that later turns into a dull ache. They often complain that the sharp pain returns when they stand up after sitting for a prolonged period of time. Non-surgical treatments for heel spurs The heel pain associated with heel spurs and plantar fasciitis may not respond well to rest. If you walk after a night's sleep, the pain may feel worse as the plantar fascia suddenly elongates, which stretches and pulls on the heel. The pain often decreases the more you walk. You may feel a recurrence of pain after either prolonged rest or extensive walking. If you have heel pain that persists for more than one month, seek medical advice. You may be advised to consider: Stretching exercises Better shoes Taping or strapping to rest stressed muscles and tendons Shoe inserts or orthotic devices Physiotherapy Heel pain may respond to treatment with [id number] medications such as paracetamol or ibuprofen. In many cases, a functional orthotic device can correct the causes of heel and arch pain such as biomechanical imbalances. In some cases, a doctor may advise an injection with a corticosteroid to relieve inflammation in the area. Surgery for heel spurs If conservative treatment fails to treat symptoms of heel spurs, surgery may be necessary to relieve pain and restore mobility. Surgical techniques include: Release of the plantar fascia Removal of a spur In most cases, plantar fascia release, with or without heel spur removal, can be effective. Tests are carried out before surgery to make sure an operation is likely to help the condition. After surgery, doctors are likely to recommend rest, ice, compression and elevation of the foot, and offer advice on when to place weight on the affected foot. In some cases, it may be necessary for patients to use bandages, splints, casts, surgical shoes, walking sticks or crutches after surgery. Possible complications of heel surgery include nerve pain, recurrent heel pain, permanent numbness of the area, infection and scarring. In addition, with plantar fascia release, there is risk of instability, foot cramps, stress fracture and tendonitis. Prevention of heel spurs You can reduce the risk of developing heel spurs by wearing well-fitting supportive shoes with shock-absorbent soles. Avoid wearing shoes with excessive wear on the heels and soles. Make sure you pick the correct trainers for different sports, always warm up before each activity and remember to pace yourself. Lose weight if you're overweight or obese to reduce the pressure and strain on the feet. Discharge Counseling Counseled pt/family regarding diagnosis, test results, medications/RX, home care, follow up needs at [phone]
[2017-09-10 18:38] VITALS: BP 117/93
--- NOTE | 2017-09-11 04:56 | RADIOLOGY REPORT PS360 ---
FOOT-LT-3 VIEWS HISTORY: PAIN IN HEEL SINCE AM ORDERING PHYSICIAN: AUDREY GRACE APRN PATIENT AGE: 66 years COMPARISON: None FINDINGS: Moderate hallux valgus with first metatarsophalangeal angle of 35 degrees with osteoarthritic change of the first MTP joint and hypertrophic change with soft tissue swelling at the distal first metatarsal consistent with bunion formation. No fracture or dislocation. 6 mm calcaneal spur. IMPRESSION: Hallux valgus with osteoarthritis and bunion formation, Calcaneal spur
== END 2017-09-10 18:39 | disposition home or self-care (01) ==
LOC: UTC 17:35
DX: M77.32 Calcaneal spur, left foot (principal); M79.672 Pain in left foot